=== PATIENT | female | born 1995 | race Caucasian/White ===

== ENCOUNTER 2024-01-15 13:28 | Outpatient (CLI) | payer BC, SELFPAY | END 2024-01-15 13:29 | disposition home or self-care (01) | LOC: AMB 01-24 05:55 | PROVIDERS: Visit Provider Emergency Medicine | DX: R06.09 Other forms of dyspnea (principal); T63.441A Toxic effect of venom of bees, accidental (unintentional), initial encounter; Y92.9 Unspecified place or not applicable | CPT/HCPCS: A0425; A0427 ==

== ENCOUNTER 2024-01-15 14:00 | Emergency (ER) | payer BC, SELFPAY ==
[2024-01-15] VITALS (22 sets, daily range): BP systolic 106–147; BP diastolic 69–90; PULSE 90–106; RESP 16–24; TEMP 36.1; O2SAT 96–100; BMI 30.7
--- NOTE | 2024-01-15 14:29 | RESP.RT ---
Patient arrived via EMS, Bee Sting; placed on NC 2 Lpm, SaO2 98%, breathing regular/easy with good air movement. EtCO2 in line 27-32 torr, Heart rate 88-95/minute. Patient awake, alert, talking.
[2024-01-15] MEDS: 0.9 % SODIUM CHLORIDE 1000 ml 1,000 ML IV (14:36)
[2024-01-15] MEDS: FAMOTIDINE 10 MG/ML inj 20 MG IVP (14:37)
[2024-01-15] MEDS: METHYLPREDNISOLONE SOD SUCC 62.5 MG/ML (125) 125 MG IVP (14:41)
--- NOTE | 2024-01-15 15:06 | ED.GENADULT ---
HPI - General Adult General Date Seen: 01/15/24 Chief complaint: Allergic Reaction Stated complaint: Allergic Reaction Time Seen by Provider: 01/15/24 14:08 Source: patient, EMS and RN notes reviewed Mode of arrival: EMS Limitations: no limitations History of Present Illness HPI narrative: Patient is a 28-year-old young woman brought in by EMS after an allergic reaction to bee stings. She actually keeps bees as a hobby, has been stung before last time was a couple of years ago and reports local reactions but never any systemic reaction. Today she had a couple of bees get stuck in her hair and sustained she thinks 3 stings. She had fairly immediate onset of lightheadedness, difficulty breathing, nausea and her dad gave her epi at about 115. Paramedics were called, on their arrival they reported a blood pressure of less than 60 systolic, they gave her fluids and Benadryl, and on arrival here blood pressure is 117 systolic, she is feeling improved, she is diffusely red but does not feel itchy. She says she feels kind of high and tired. No difficulty breathing at this time. Related Data Home Medications ?Medication ?Instructions ?Recorded ?Confirmed adalimumab subcut 01/15/24 escitalopram oxalate .ROUTE 01/15/24 levonorgestrel-ethinyl estrad .ROUTE 01/15/24 Previous Rx's ?Medication ?Instructions ?Recorded epinephrine 0.3 mg/0.3 mL 0.3 ml IM Q5-15M PRN #2 ea 01/15/24 injection, auto-injector (EpiPen 2-Jonathan) prednisone 20 mg tablet 20 mg PO BID #10 tabs 01/15/24 Allergies Allergy/AdvReac Type Severity Reaction Status Date / Time bee venom protein (honey bee) Allergy Unknown Verified 01/15/24 14:11 latex Allergy Unknown Verified 01/15/24 14:14 Penicillins Allergy Unknown Verified 01/15/24 14:14 Sulfa (Sulfonamide Allergy Unknown Verified 01/15/24 14:14 Antibiotics) Review of Systems Status of ROS: Reports: 10 or more systems reviewed and unremarkable except as noted in History and below PFS PFS Social History Smoking Status: Never smoker Do you use any of these nicotine containing products: None How often do you have a drink containing alcohol: 2-3 times a week How many standard drinks containing alcohol do you have on a typical day: 1 or 2 AUDIT-C Alcohol total score: 3 Non-prescribed substance use: denies use service: No Exam Narrative: Exam Narrative: Vital signs as noted above. In general, an alert, nontoxic young woman. Head: Normocephalic, atraumatic. Eyes: Pupils are equal reactive. Extraocular movements are full. Conjunctivae are mildly injected. ENT: Mucous membranes are moist. Throat is normal, no edema, airway patent. She has a little circumoral pallor. Neck: Supple without lymphadenopathy. No stridor. Heart: Regular rate and rhythm. No murmur or rub. Lungs: Clear bilaterally. No increased work of breathing, crackles or wheezes. Abdomen: Soft and nontender. No organomegaly. Extremities: Well perfused. No edema. No calf tenderness. Pulses intact. Neurologic: Patient is alert and oriented to person and place. Speech is fluent. Face is symmetric. Moves all extremities equally. Affect: Normal. Skin: Skin is diffusely erythematous, no visible hives at this point. Const: Vital Signs, click to edit/add: Vital Signs - 24 hr 01/15/24 14:07 01/15/24 14:17 01/15/24 14:21 Temperature 97.0 F L Pulse Rate 100 Pulse Rate [Pulse Oximeter] 93 Respiratory Rate 20 23 Blood Pressure 116/79 Blood Pressure [Ri ght Upper Arm] 117/89 Pulse Oximetry 96 100 100 Oxygen Delivery Me thod Room Air Oxygen Flow Rate 01/15/24 14:27 01/15/24 14:31 01/15/24 14:41 Temperature Pulse Rate 90 94 Pulse Rate [Pulse Oximeter] Respiratory Rate 20 17 18 Blood Pressure 121/85 120/76 Blood Pressure [Ri ght Upper Arm] Pulse Oximetry 98 100 100 Oxygen Delivery Me thod Nasal Cannula Oxygen Flow Rate 2 01/15/24 14:51 01/15/24 15:01 01/15/24 15:02 Temperature Pulse Rate 106 H 93 92 Pulse Rate [Pulse Oximeter] Respiratory Rate 24 20 18 Blood Pressure 147/90 H 119/74 Blood Pressure [Ri ght Upper Arm] Pulse Oximetry 100 100 100 Oxygen Delivery Me thod Oxygen Flow Rate 01/15/24 15:15 01/15/24 15:16 01/15/24 15:17 Temperature Pulse Rate 91 93 91 Pulse Rate [Pulse Oximeter] Respiratory Rate 20 20 19 Blood Pressure 114/81 Blood Pressure [Ri ght Upper Arm] Pulse Oximetry 100 100 100 Oxygen Delivery Me thod Oxygen Flow Rate 01/15/24 15:31 01/15/24 15:46 01/15/24 15:47 Temperature Pulse Rate 94 94 96 Pulse Rate [Pulse Oximeter] Respiratory Rate 20 16 17 Blood Pressure 114/74 112/71 Blood Pressure [Ri ght Upper Arm] Pulse Oximetry 100 100 100 Oxygen Delivery Me thod Oxygen Flow Rate 01/15/24 16:01 Temperature Pulse Rate 99 Pulse Rate [Pulse Oximeter] Respiratory Rate 18 Blood Pressure 107/69 Blood Pressure [Ri ght Upper Arm] Pulse Oximetry 99 Oxygen Delivery Me thod Oxygen Flow Rate Documenting provider has reviewed patient's vital signs: yes Course Course ED Course: She was maintained on cardiac and oximetry monitoring. I gave her an additional L of normal saline, I gave her Solu-Medrol 125 IV along with famotidine 20 mg IV. At this time, plan will be for observation over the next few hours. If she has recurrent hypotension, airway compromise or other severe symptoms, would initiate an epinephrine drip. Patient was observed here for several hours. Over time her symptoms dramatically improved. She no longer has any erythema, her blood pressures have been stable in the 1 teens to 120s. She has no complaints at this time and is eager to go home. I think this is reasonable. I am going to send her home with prednisone and instructions to take an antihistamine over the next several days on a scheduled basis. I also refilled her epi pens. She will re-home her bees. Vital Signs Vital signs: Initial Vital Signs Temperature 97.0 F L 01/15/24 14:07 Temperature Source Temporal Artery Scan 01/15/24 14:07 Pulse Rate 93 01/15/24 14:07 Respiratory Rate 20 01/15/24 14:07 Blood Pressure 117/89 01/15/24 14:07 Blood Pressure Mean 98 01/15/24 14:07 Blood Pressure Position Supine 01/15/24 14:07 Pulse Oximetry 96 01/15/24 14:07 Oxygen Delivery Method Room Air 01/15/24 14:07 Vital Signs Temperature 97.0 F L 01/15/24 14:07 Pulse Rate 93 01/15/24 14:07 Respiratory Rate 20 01/15/24 14:07 Blood Pressure 117/89 01/15/24 14:07 Pulse Oximetry 96 01/15/24 14:07 Oxygen Delivery Method Room Air 01/15/24 14:07 Temperature 97.0 F L 01/15/24 14:07 Pulse Rate 99 01/15/24 16:01 Respiratory Rate 18 01/15/24 16:01 Blood Pressure 107/69 01/15/24 16:01 Pulse Oximetry 99 01/15/24 16:01 Oxygen Delivery Method Nasal Cannula 01/15/24 14:27 Oxygen Flow Rate 2 01/15/24 14:27 Medications Administered Medications: Discontinued Medications Generic Name Dose Route Start Last Admin Trade Name Freq PRN Reason Stop Dose Admin Famotidine 20 mg 01/15/24 14:13 01/15/24 14:37 Famotidine 10 Mg/Ml Inj IVP 01/15/24 14:14 20 mg ONCE ONE Administration Sodium Chloride 1,000 mls @ 1,000 mls/hr 01/15/24 14:15 01/15/24 16:00 0.9 % Sodium Chloride 1000 Ml IV 01/15/24 15:14 Infused .Q1H MAVIS Infusion Methylprednisolone Sodium Succinate 125 mg 01/15/24 14:13 01/15/24 14:41 Methylprednisolone Sod Succ 62.5 Mg/Ml (125) IVP 01/15/24 14:14 125 mg ONCE ONE Administration Discharge Plan Discharge Clinical Impression: Anaphylaxis Patient Disposition: Home w/ Parent or Adult Condition: Improved Instructions: Anaphylaxis (ED) Additional Instructions: Take an antihistamine such as Zyrtec/Isela/Claritin twice a day, or Benadryl 4 times a day for the next 3-4 days. Prednisone as prescribed. If at any time you feel that symptoms are returning, you should come back to the ER. I sent a prescription for additional epi pens as well. Prescriptions: New prednisone 20 mg tablet 20 mg PO BID Qty: 10 0RF epinephrine [EpiPen 2-Jonathan] 0.3 mg/0.3 mL auto-injector 0.3 ml IM Q5-15M PRNQty: 2 0RF Rx Instructions: do not exceed 2 doses per episode No Action escitalopram oxalate [Lexapro] .ROUTE adalimumab [Humira Pen] subcut levonorgestrel-ethinyl estrad [Jolessa] .ROUTE Follow Up/Referrals: Provider,Not a Local [Primary Care Provider] - Stand Alone Forms: [employer] Info Instructions
== END 2024-01-15 17:06 | disposition home or self-care (01) ==
PROVIDERS: Emergency Provider Emergency Medicine
DX: T63.441A Toxic effect of venom of bees, accidental (unintentional), initial encounter (principal); T78.2XXA Anaphylactic shock, unspecified, initial encounter; X58.XXXA Exposure to other specified factors, initial encounter
CPT/HCPCS: 94761; 96361; 96374; 96375; 99284; J2919; J7030; S0028